=== PATIENT | female | born 1975 | race Caucasian/White ===

== ENCOUNTER 2023-01-17 11:15 | Outpatient (CLI) | payer BC, SELFPAY | END 2023-01-17 11:16 | disposition home or self-care (01) | PROVIDERS: PCP Internal Medicine; Visit Provider Internal Medicine | DX: Z00.00 Encounter for general adult medical examination without abnormal findings (principal); Z13.6 Encounter for screening for cardiovascular disorders; Z13.1 Encounter for screening for diabetes mellitus | CPT/HCPCS: 80061; 82947 ==

== ENCOUNTER 2023-02-11 14:59 | Outpatient (CLI) | payer BC, SELFPAY ==
--- NOTE | 2023-02-11 15:20 | CRLHL7_ITS ---
For Patients: As a result of the Century Cures Act, medical imaging exams and procedure reports are released immediately into your electronic medical record. You may view this report before your referring provider. If you have questions, please contact your health care provider. BILATERAL SCREENING MAMMOGRAM WITH COMPUTER-AIDED DETECTION AND TOMOSYNTHESIS TECHNIQUE: CC and MLO views were obtained. These mammographic images have been obtained using full-field digital technique. These mammographic images were interpreted with the benefit of computer-aided detection. Breast Tomosynthesis was used in this interpretation. COMPARISON FILM: 01/08/22, 11/30/20, 08/04/19 FINDINGS: The breasts are heterogeneously dense, which may obscure small masses IMPRESSION: There is no radiographic evidence for malignancy. ASSESSMENT: BI-RADS Category 1: Negative RECOMMENDATION: Routine screening mammogram in 1 year. A lay language report of this examination will be provided to the patient. Apolinar Yoo M.D. Diagnostic Radiologist [email or web address] DORA/[email or web address] Transcribed: 2:30 p.mErich zamudio/Dictated by: Apolinar Yoo MD @ 02/12/2023 8:48:00 AM (Electronically Signed)
== END 2023-02-11 15:00 | disposition home or self-care (01) ==
LOC: MAMMO 15:01
PROVIDERS: PCP Internal Medicine; Visit Provider Obstetrics & Gynecology
DX: Z12.31 Encounter for screening mammogram for malignant neoplasm of breast (principal); R92.2 Inconclusive mammogram
CPT/HCPCS: 77063; 77067

== ENCOUNTER 2024-02-13 10:02 | Outpatient (CLI) | payer BC, SELFPAY ==
--- OUTSIDE RECORDS SUMMARY | 2024-02-13 10:08 | XMS_ITS | Clinical Summary ---
Author Name Unknown Organization [employer] [facility] Address [place], [place] [address] Care Team Providers Care Extension Clerk Name Role Phone Mauri Arreguin MD Primary Care Provider Allergies No known active allergies Medications Medication Sig Dispensed Refills Start Date End Date Status FISH OIL 1,200 MG-144 MG-216 MG CAP Once daily 0 04/21/2007 Active MULTIVITAMIN TAB take 1 tablet by oral route once daily with food 0 04/21/2007 Active pyridoxine (VITAMIN B-6) 25 mg tablet Take 1 tablet by mouth once daily. Take 1 tablet by mouth three times daily 0 12/13/2009 Active amoxicillin (AMOXIL) 875 mg tabletIndications:Acut e sinusitis, unspecified 1 tablet by mouth twice daily for 10 days. Sinusitis. Patient is 14 weeks ; please give her med information. 20 tablet 0 12/13/2009 Active Active Problems Problem Noted Date Diagnosed Date Edema Immunizations Name Administration Dates Next Due Influenza, IIV3 (Age >=3 years) 08/14/2010 MMR 02/25/1993 Td (Age >=7 Years) 05/20/1998 Tdap 07/27/2010 Family History Medical History Relation Name Comments Cancer-prostate Father Hyperlipidemia Maternal Grandfather Stroke Maternal Grandfather Cancer Maternal Grandmother liver Heart Disease Maternal Grandmother Psychiatric illness Mother Diabetes Paternal Grandfather Hypertension Paternal Grandmother Psychiatric illness Sister Relation Name Status Comments Father Maternal Grandfather Maternal Grandmother Mother Other anuel Alive spouse Paternal Grandfather Paternal Grandmother Sister Social History Tobacco Use Types Packs/Day Years Used Date Smoking Tobacco: Former Cigarettes 1 5 0 04/21/1994 - 04/21/1999 Smokeless Tobacco: Never Tobacco Cessation:Counseling Given: Yes Alcohol Use Standard Drinks/Week Comments Yes 1.7 (1 standard drink = 0.6 oz p ure alcohol) Sex and Gender Information Value Date Recorded Sex Assigned at Not on file Gender Identity Not on file Sexual Orientation Not on file Obstetrics History Last Filed Vital Signs Vital Sign Reading Time Taken Comments Blood Pressure 102/68 08/14/2012 7:13 AM CDT tow er Pulse 69 08/14/2012 7:13 AM CDT Temperature 36.6 ??C (97.9 ??F) 08/14/2012 7:13 AM CD T Respiratory Rate - - Oxygen Saturation 97% 08/14/2012 7:13 AM CDT Inhaled Oxygen Concentration - - Weight 65.7 kg (144 lb 12.8 oz) 08/14/2012 7:13 AM CDT Height 167.6 cm (5' 6) 04/29/2007 9:30 AM CDT Body Mass Index 23.37 04/29/2007 9:30 AM CDT Plan of Treatment Health Maintenance Due Date Last Done Comments Depression screening for age 12+ 1987 HIV for age 15-65 1990 BMI (ht and wt on same day) for age 18+ 1993 Hepatitis C screening for age 18-79 1993 Tetanus booster 07/27/2020 07/27/2010, 05/20/1998 Colonoscopy through age 75 2020 Lipids for age 45-75 2020 Mammogram for age 45-75 2020 COVID-19 vaccine series (2022- season) 2023 Influenza for age 9-49 06/28/2024 08/14/2010 Pap test for age 21-65 01/29/2026 , 01/29/2023, 03/20/2018, Additional history exists Tdap Completed 07/27/2010 Pneumococcal series for age 6-64 Aged Out No longer eligible based on patient's age to complete this topic Procedures Procedure Name Priority Date/Time Associated Diagnosis Comments HPV THIN PREP Routine 01/29/2023 8:00 AM CDT from Last 3 Months or Most Recently Relevant to Health Maintenance Results * HPV HIGH RISK (01/29/2023 8:00 AM CDT) TYPE 16 Negative Negative 01/31/2023 4:43 PM CDT [facility] TYPE 18 Negative Negative 01/31/2023 4:43 PM CDT [facility] OTHER HIGH RISK TYPES Negative Negative 01/31/2023 4:43 PM CDT [facility] Other (Cervical) 01/29/2023 8:00 AM CDT 01/30/2023 7:36 AM CDT Narrative [facility] - 01/31/2023 4:43 PM CDT HPV types 16, 18, 31, 33, 35, 39, 45, 51, 52, 56, 58, 59, 66 and 68 DNA were undetectable or below the pre-set threshold. Methodology: [facility] [address] 4800 HPV Test Kamila Colvin MD MICROBIOLOGY [facility] [address] [place] [address], from Last 3 Months or Most Recently Relevant to Health Maintenance Care Teams Extension Clerk Relationship Specialty Start Date End Date Mauri Arreguin MD [address] [place] [address] PCP - General 02/05/07
--- NOTE | 2024-02-13 10:15 | MM_ITS ---
Patient: DARA MARTINEZ Facility:?[facility] Patient ID:?[id number] Site Patient ID:?[id number]. Site :?[id number] Study:?XRay-Breast Bilateral 3D W/CAD-02/13/2024 10:27:55 AM Ordering Physician:Kamila Torres Final Report: BILATERAL SCREENING MAMMOGRAM WITH COMPUTER-AIDED DETECTION AND TOMOSYNTHESIS TECHNIQUE: CC and MLO views were obtained. These mammographic images have been obtained using full-field digital technique. These mammographic images were interpreted with the benefit of computer-aided detection. Breast Tomosynthesis was used in this interpretation. COMPARISON FILM: 02/11/23, 11/30/20, 08/04/19. FINDINGS: The breasts are heterogeneously dense, which may obscure small masses. IMPRESSION: There is no radiographic evidence for malignancy. ASSESSMENT: BI-RADS Category 1: Negative RECOMMENDATION: Routine screening mammogram in 1 year. A lay language report of this examination will be provided to the patient. Apolinar Yoo M.D. Diagnostic Radiologist [email or web address] DSM/sp R& Transcribed: 1:07 p.m. SP/Dictated by: Apolinar Yoo MD @ 02/13/2024 12:25:00 PM Signed by:?Apolinar Yoo MD @02/13/2024 3:46:13 PM (Electronic Signature)
== END 2024-02-13 10:03 | disposition home or self-care (01) ==
LOC: MAMMO 10:03
PROVIDERS: PCP Internal Medicine; Visit Provider Internal Medicine
DX: Z12.31 Encounter for screening mammogram for malignant neoplasm of breast (principal); R92.2 Inconclusive mammogram
CPT/HCPCS: 77063; 77067

== ENCOUNTER 2025-02-23 19:07 | Outpatient (CLI) | payer BC, SELFPAY ==
--- NOTE | 2025-02-23 19:20 | CRLHL7_ITS ---
For Patients: As a result of the Century Cures Act, medical imaging exams and procedure reports are released immediately into your electronic medical record. You may view this report before your referring provider. If you have questions, please contact your health care provider. INDICATION: BILATERAL SCREENING MAMMOGRAM, ASYMPTOMATIC 49 F COMPARISON: 02/13/24, 02/11/23, 01/08/22 TECHNIQUE: CC and MLO views were obtained. These mammographic images have been obtained using full-field digital technique. These mammographic images were interpreted with the benefit of computer aided detection and tomosynthesis. BREAST COMPOSITION: The breasts are heterogeneously dense, which may obscure small masses. FINDINGS: No suspicious findings. ASSESSMENT: BI-RADS 1 Negative RECOMMENDATION: Annual screening mammogram. A lay language report of this examination will be provided to the patient. Dictated by: Apolinar Yoo MD @ 03/03/2025 09:53:26 (Electronically Signed)
== END 2025-02-23 19:08 | disposition home or self-care (01) ==
LOC: MAMMO 19:08
PROVIDERS: PCP Internal Medicine; Visit Provider Internal Medicine
DX: Z12.31 Encounter for screening mammogram for malignant neoplasm of breast (principal); R92.333 Mammographic heterogeneous density, bilateral breasts
CPT/HCPCS: 77063; 77067

== ENCOUNTER 2025-10-01 10:54 | Outpatient (CLI) | payer BC, SELFPAY ==
[2025-10-01 12:15] LABS: Potassium* 4.1 mmol/L (3.6-5.1)
== END 2025-10-01 10:55 | disposition home or self-care (01) ==
LOC: NPINS 10:56
PROVIDERS: PCP Internal Medicine; Visit Provider Physician Assistant Medical
DX: Z79.899 Other long term (current) drug therapy (principal)
CPT/HCPCS: 84132